=== PATIENT | female | born 1995 | race Caucasian/White ===

== ENCOUNTER 2022-11-07 08:29 | Emergency (ER) | payer BC ==
[2022-11-07] MEDS ORDERED: Tetracaine HCl/PF 0.5% 4 ML Bottle EYEBOTH ONE (09:47)
[2022-11-07] MEDS ORDERED: Fluorescein 1 MG Ophth Strip EYEBOTH ONE (09:48)
[2022-11-07] MEDS ORDERED: Fluorescein 1 MG Ophth Strip ONE (09:51)
== END 2022-11-07 10:06 | disposition home or self-care (01) ==
LOC: DL.ED 08:29
DX: H10.13 Acute atopic conjunctivitis, bilateral (principal)
CPT/HCPCS: 99282; 99283; J3490